=== PATIENT | male | born 1965 | race Caucasian/White ===

== ENCOUNTER 2017-05-24 18:58 | Inpatient (IN) | payer OTHER ==
[~2017-05-24] VITALS: Ht 182.9 cm; Wt 125.5 kg
--- NOTE | ~2017-05-24 | CATHLAB ---
[facility] [address] [place] [address] INVASIVE PROCEDURE REPORT Name: LISA SAHU Room #: 207-P [facility] IN M.R.#: [id number] Admission: 05/24/17 Attend Phys: Jaya Cao Discharge: Date of : 63 Date of Service: 05/25/17 1245 Report #: [id number] THIS REPORT FOR: //name// APPROVED REPORT Patient Details Patient Status: In-Patient Room #: The patient is a 51 year-old male Event Personnel Nitesh [employer] General Manager, Aimee Godwin, Regina Cintron [place], Ariel RN RN, Leonela Stinson RN embalmer/funeral director Performed Art Access - R femoral artery* Left Heart Cath w/or w/o Coronaries [id number] [facility] Hemostasis with Manual pressure Indication Dyspnea, Chest pain Risk Factors Obesity, Hypercholesterolemia, Coronary Artery DiseaseHypertension Previous Procedures/Diagnoses Previous PCI Procedure Narrative The patient was brought urgently to the Cardiac Catheterization Laboratory and was prepped and draped in a sterile manner. The Right Groin^ was infiltrated with 1% Lidocaine subcutaneous anesthesia. A PINNACLE 6FR Sheath #[id number] sheath was inserted into the RFA^. Coronary angiography was performed using coronary diagnostic catheters. The right coronary system was accessed and visualized with a JR 4 catheter. The left coronary system was accessed and visualized with a JL 4 catheter. The left ventricle was accessed and visualized with a Pigtail catheter. Left ventricular/Aortic Valve gradient assessed via catheter pullback. Left ventriculogram was performed in NAVARRO projection. Pre-demployment femoral angiogram was performed . Hemostasis was obtained with manual pressure following sheath removal without any complications. The patient tolerated the procedure well and there were no complications associated with the procedure. There was no hematoma. [facility] [address] [place] [address] INVASIVE PROCEDURE REPORT Name: LISA SAHU Room #: 207-P [facility] IN ..#: [id number] Admission: 05/24/17 Attend Phys: Jaya Cao Discharge: Date of : 63 Date of Service: 05/25/17 1245 Report #: [id number] Intraoperative Conscious Sedation Sedation start time: 11:19 Case end Time: 11:43 Fentanyl 50.0 mcg Versed 3.0 mg Fluoro Time: 2.48 minutes Dose: DAP 5564.70 cGycm2 638 mGy Contrast Type and Amount: Omnipaque 105 ml Coronary Angiography The patient's coronary anatomy is left dominant. Diagnostic Cath Left Main patent vessel, with no flow-limiting lesions. LAD There are patent stent in the mid LAD, with mild restenosis, 20%. The distal LAD tapers down to a small size caliber vessel with severe disease, unchanged from prior procedures. Diagonal 2 Patent stent at the ostium, with mild restenosis, 20%. Circumflex Dominant vessel with mild disease in the proximal segment, 20%. There are multiple OM vessels, patent with no flow-limiting lesions. L PDA Patent vessel, with no flow-limiting lesions. Right Coronary Small-caliber, nondominant vessel with no flow-limiting lesions. Left Ventriculography The left ventricle is normal in size with decreased contractility. The left ventricular ejection fraction is estimated to be 50%. There is mild hypokinesis of the apical segment. Hemodynamics The aortic pressure is 105/74 mmHg with a mean of 90 mmHg. The left ventricular pressure is 125/15 mmHg with a mean of mmHg. The left ventricular end diastolic pressure is 24 mmHg. Conclusion 1. Patent stents in the mid LAD and second diagonal artery. The distal LAD tapers down to a small size caliber vessel with severe disease. Unchanged from prior procedures. 2. Dominant left circumflex artery with mild disease. [facility] [address] [place] [address] INVASIVE PROCEDURE REPORT Name: MARYNadyaLISA DARA Room #: 207-P [facility] IN [facility].#: [id number] Admission: 05/24/17 Attend Phys: Jaya Cao Discharge: Date of : 63 Date of Service: 05/25/17 1245 Report #: [id number] 3. Mild segmental LV dysfunction, EF of 45-50%. 4. Recommend medical therapy. <ELECTRONICALLY SIGNED> By: Nitesh Singleton MD 05/25/17 1245 1245 1245 Nitesh Singleton MD /INF
--- NOTE | ~2017-05-24 | HC ---
[facility] [address] [place] [address] CONSULTATION Name: LUIS ALBERTOLISA DIAMOND Room #: 207-P [facility] IN M.R.#: [id number] Admission: 05/24/17 Attend Phys: Jaya Polk Discharge: 05/25/17 Date of : 63 Report #: [id number] THIS REPORT FOR: //name// CC: Jaya LARSEN DATE OF SERVICE: 05/25/2017 INDICATION: Chest pain. HISTORY OF PRESENT ILLNESS: This is a 51-year-old gentleman with a history of coronary artery disease, implantable cardioverter-defibrillator, presenting with chest pains. He resides in [place], but is in [place] visiting friends. While driving yesterday, he developed a discomfort in the left side of his chest, radiating to the back area. It was associated with shortness of breath, diaphoresis and lightheadedness. He had to date puller and take aspirin and nitroglycerin. This is similar to his previous presentations before undergoing stent insertion. His last cardiac catheterization was in 2013 performed at [facility], he was also visiting during that time. He was found to have patent stents in the left anterior descending and second diagonal artery. The distal left anterior descending tapered down to a small sized caliber vessel, unchanged from prior procedures. The left circumflex is dominant with mild disease. PAST MEDICAL HISTORY: Coronary artery disease with stents, implantable cardioverter-defibrillator for complete heart block, cardiomyopathy, hypertension, diabetes mellitus, hypercholesterolemia. ALLERGIES: Include Tylenol, ibuprofen, NSAIDS. MEDICATIONS: Please see the MAR for full listing. SOCIAL HISTORY: Negative for tobacco use. FAMILY HISTORY: Negative for premature coronary artery disease. REVIEW OF SYSTEMS: A full 10-point review of systems performed. Only the pertinent positives and negatives are described in the HPI. PHYSICAL EXAMINATION: VITAL SIGNS: Blood pressure 124/80, heart rate is 70 beats per minute. GENERAL APPEARANCE: This is a mildly overweight male, in no acute respiratory distress. HEAD AND EYES: Normocephalic. Sclerae are anicteric. ENT: Oral mucosa moist. NECK: Supple. [facility] [address] [place] [address] CONSULTATION Name: LISA SAHU Room #: 207-P [facility] IN M.R.#: [id number] Admission: 05/24/17 Attend Phys: Jaya Polk Discharge: 05/25/17 Date of : 63 Report #: [id number] LUNGS: Clear to auscultation. CARDIAC: Regular rate and rhythm, S1, S2 positive. ABDOMEN: Soft. EXTREMITIES: No cyanosis, no edema. LABORATORY DATA: ECG reveals sinus rhythm, poor R-wave progression, nonspecific ST-T wave abnormality. Troponin levels, peak troponin is 0.10. White count 5.3, hemoglobin is 13.9. Creatinine is 1.2, sodium is 139. ASSESSMENT AND PLAN: 1. Acute coronary syndrome, minimal troponin elevation. The patient reports that his symptoms are similar to his previous presentation prior to stent insertion. We discussed the pros and cons of a cardiac catheterization. The patient understands and wishes to proceed. 2. Implantable cardioverter-defibrillator, continue on telemetry. 3. Hypertension, continue with cardiac medications. 4. Diabetes mellitus, continue with diabetic regimen. 5. Hypercholesterolemia, continue with statin therapy. <ELECTRONICALLY SIGNED> By: Nitesh Singleton MD 05/26/17 0800 1050 1427 Nitesh Singleton MD /nt
--- NOTE | ~2017-05-24 | EKG ---
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: MZOONeil : 1965 Requested By: Monisha Bullard Order Number: [id number] MD: Nitesh Singleton Measurements Intervals Mcdougal Rate: 71 P: 42 FL: 185 QRS: -40 QRSD: 96 T: 154 QT: 416 QTc: 453 Interpretive Statements Sinus rhythm Left axis deviation Abnormal R-wave progression, late transition Abnormal T, consider ischemia, lateral leads Compared to ECG 04/24/2014 18:55:37 Left-axis deviation now present Prolonged QT interval no longer present T-wave abnormality still present Possible ischemia still present Electronically Signed On 05-25-2017 12:26:32 COUNSELOR MANAGER by Nitesh Singleton [email or web address] <ELECTRONICALLY SIGNED> By: Nitesh Singleton MD 05/25/17 1226 1905 190 Nitesh Singleton MD /EPI
[~2017-05-24 18:58] MED LIST: ASA-BUTALB-CAF1 EACH PO; CRESTOR10 MG PO; IMDUR 30 MG TAB30 M1 PO; LIPITOR10 MG PO; LISINOPRIL10 MG PO; PLAVIX 75 MG TA75 M1 PO; TOPROL XL25 MG PO
[2017-05-24 19:03] VITALS: BP 136/75
[2017-05-24 19:34] LABS: ABSOLUTE NEUTROPHILS 3.8 thou/uL (1.4-8.2); BASOPHILS 0.8 % (0.0-2.0); EOSINOPHILS 2.6 % (0.0-3.0); HEMATOCRIT 40.7 % (42.0-52.0); HEMOGLOBIN 13.9 gm/dL (14.0-18.0); LYMPHOCYTES 14.9 % (24.0-44.0); MCH 31.5 pg (26.0-34.0); MCHC 34.1 g/dL (28.0-37.0); MCV 92.4 fL (80.0-100.0); PLATELET COUNT 208 thou/uL (150-400); POLYS 72.7 % (36.0-66.0); RBC 4.41 mil/uL (4.50-6.00); RDW 13.4 % (10.5-14.5); WBC 5.3 thou/uL (4.0-11.0)
[2017-05-24 19:35] LABS: MANUAL DIFF NO
[2017-05-24 19:51] LABS: CALCIUM 9.3 mg/dL (8.5-10.1); CREATININE 1.2 mg/dL (0.7-1.3); POTASSIUM 4.1 mmol/L (3.5-5.1); TROPONIN-I 0.1 ng/mL (<0.06)
[2017-05-24 22:28] VITALS: BP 110/50
[2017-05-24 22:49] VITALS: BP 112/56
[2017-05-24 22:52] VITALS: BP 105/40
[2017-05-25] VITALS (9 sets, daily range): BP systolic 98–127; BP diastolic 61–81
[2017-05-25] MEDS ORDERED: NEURONTIN600 MG PO (00:08)
[2017-05-25] MEDS ORDERED: RANEXA500 MG PO (00:09)
[2017-05-25] MEDS ORDERED: TRAZODONE 150150 M1 PO (00:10)
[2017-05-25] MEDS ORDERED: COLACE100 MG PO (00:10)
[2017-05-25] MEDS ORDERED: ZANTAC 150MG T150 MG PO (00:11)
[2017-05-25] MEDS ORDERED: GLIPIZIDE 10 MG10 MG PO (00:12)
[2017-05-25] MEDS ORDERED: ZYRTEC10 M4 PO (00:13)
[2017-05-25] MEDS ORDERED: SPIRIVA INH (00:14)
[2017-05-25] MEDS ORDERED: LITE COAT ASPI325 MG PO (00:15)
[2017-05-25] MEDS ORDERED: SYMBICORT160 MCG/4. (00:16)
[2017-05-25] MEDS ORDERED: PROVENTIL HFA6.7 G1 INH (00:17)
[2017-05-25] MEDS ORDERED: MELATONIN5 M1 PO (00:19)
[2017-05-25] MEDS ORDERED: IRON325 PO (00:20)
== END 2017-05-25 21:44 | disposition home or self-care (01) | DRG 287 ==
LOC: ER 18:58 → EROBS 20:15 → 2N 22:36
PROVIDERS: Emergency Medicine
PROC: B215YZZ Fluoroscopy of Left Heart using Other Contrast (ICD-10-PCS; principal; 2017-05-25)
PROC: 4A023N7 Measurement of Cardiac Sampling and Pressure, Left Heart, Percutaneous Approach (ICD-10-PCS; principal; 2017-05-25)
PROC: B211YZZ Fluoroscopy of Multiple Coronary Arteries using Other Contrast (ICD-10-PCS; principal; 2017-05-25)
DX: I25.10 Atherosclerotic heart disease of native coronary artery without angina pectoris (principal); I10 Essential (primary) hypertension; I42.2 Other hypertrophic cardiomyopathy; E78.00 Pure hypercholesterolemia, unspecified; F32.9 Major depressive disorder, single episode, unspecified; E11.9 Type 2 diabetes mellitus without complications; E78.5 Hyperlipidemia, unspecified; J44.9 Chronic obstructive pulmonary disease, unspecified; Z99.81 Dependence on supplemental oxygen; Z95.810 Presence of automatic (implantable) cardiac defibrillator; I25.2 Old myocardial infarction; Z95.5 Presence of coronary angioplasty implant and graft; Z88.1 Allergy status to other antibiotic agents; Z88.8 Allergy status to other drugs, medicaments and biological substances; Z88.6 Allergy status to analgesic agent
CPT/HCPCS: 10081